=== PATIENT | female | born 1945 | race Two or more races ===

== ENCOUNTER 2018-10-05 21:55 | Inpatient (IN) | payer OTHER, MEDICAID ==
[~2018-10-05] VITALS: Ht 165.1 cm; Wt 53.5 kg
[2018-10-05] MEDS ORDERED: SODIUM CHLORIDE 0.9% 1,000 ML IV ONE (22:30)
[2018-10-05] MEDS ORDERED: metroNIDAZOLE 500MG/100ML 100 ML IV ONE (22:45)
[2018-10-05] MEDS ORDERED: cefTRIAXone 1GM/50ML D5W 50 ML IV ONE (22:45)
[2018-10-05] MEDS ORDERED: IODIXANOL 320MG/ML 100ML BTL IV ONE (23:07)
[2018-10-05] MEDS ORDERED: GASTROGRAFIN 30 ML SOL ONE (23:08)
[2018-10-06 01:25] LABS: Urine Amorphous Crystal FEW /hpf (None Seen); Urine Bacteria FEW /hpf (None Seen); Urine Blood Negative /uL (Negative); Urine Hyaline Cast FEW /lpf (0 - 2); Urine Mucus FEW (None Seen); Urine WBC 7 /hpf (0 - 5)
[2018-10-06 02:02] LABS: Basophils # (auto) 0 uL; Basophils % (auto) 0.2 % (0.0-2.0); Eosinophils # (auto) 0 uL; Eosinophils % (auto) 0.1 % (0.0-7.0); Hematocrit 32.1 % (36.0-46.0); Lymphocytes # (auto) 1.9 uL; Lymphocytes % (auto) 16.7 % (10.0-50.0); Mean Corpuscular Hemoglobin 31.7 pg (28.0-32.0); Mean Corpuscular Hgb Conc. 34.1 g/dL (32.0-36.0); Mean Corpuscular Volume 92.9 fL (80.0-100.0); Neutrophils # (auto) 8.2 uL; Platelet Count (auto) 120 10^3/uL (140-450); Red Blood Cells 3.45 10^6/uL (4.0-5.20); Red Cell Distribution Width 14.5 % (11.8-14.3); White Blood Cell 11.1 10^3/uL (4.4-10.8)
[2018-10-06 02:13] LABS: Albumin 2.8 g/dL (3.4-5.0); BUN/Creatinine Ratio 39.1; Blood Urea Nitrogen 25 mg/dL (7-18); Calcium 8.1 mg/dL (8.5-10.1); Chloride 102 mmol/L (98-107); GFR African American 118 mL/min; GFR Non-African American 97 mL/min; Glucose 146 mg/dL (74-106); Potassium 4.2 mmol/L (3.5-5.1); Sodium 137 mmol/L (136-145)
[2018-10-06 02:22] LABS: Alanine Aminotransferase 25 U/L (13-56); Alkaline Phosphatase 203 U/L (45-117); Anion Gap 13 (5-15); Aspartate Aminotransferase 38 U/L (15-37); Bilirubin, Total 0.8 mg/dL (0.2-1.0); Carbon Dioxide 22 mmol/L (21-32); Total Protein 6.5 g/dL (6.4-8.2)
[2018-10-06] MEDS ORDERED: SODIUM CHLORIDE 0.9% 1,000 ML IV ONE (04:15)
[2018-10-06] MEDS ORDERED: ACETAMINOPHEN 500 MG TAB PO PRN (05:00)
[2018-10-06] MEDS ORDERED: ALBUMIN 25% 50 ML IV ONE (06:15)
--- NOTE | 2018-10-06 08:27 | NUR ---
Telemetry admit from [facility] admitted to Telemetry unit after SBAR received. Patient oriented to primary RN, unit, room, bed, and unit policies regarding patient care and visiting hours. Patient now on continuous telemetry monitoring. Patient placed on bedside oxygen, weighed by bedscale and encouraged to call if they need something. All questions and concerns addressed, patient verbalized understanding.
--- NOTE | 2018-10-06 08:35 | NUR ---
BM Patient had large amount of watery stool. She is incontinent, unaware when she wants to have BM.
[2018-10-06 09:14] VITALS: BP 105/88
[2018-10-06 09:19] VITALS: BP 105/88
[2018-10-06] MEDS: PANTOPRAZOLE 40 MG TAB PO SCH (09:45)
[2018-10-06] MEDS: ONDANSETRON HCL 4 MG/2 ML VIAL IV PRN (09:45)
[2018-10-06] MEDS: MORPHINE SULF INJ 2 MG/ML SYRINGE 1ML IV PRN (09:45)
[2018-10-06] MEDS: DOCUSATE SOD 100 MG CAP PO SCH ×2 (10:00→21:35)
[2018-10-06 13:00] VITALS: BP 101/49
--- NOTE | 2018-10-06 14:10 | NUR ---
Granddaughter at bedside.
[2018-10-06] MEDS ORDERED: LEVO200T7 PO (14:41)
[2018-10-06] MEDS ORDERED: CARV12.544 PO (14:41)
[2018-10-06] MEDS ORDERED: CARV6.2551 PO (14:41)
[2018-10-06] MEDS ORDERED: FURO40TA4 PO (14:41)
[2018-10-06] MEDS ORDERED: POTA-180 PO (14:41)
[2018-10-06] MEDS ORDERED: RIV20T PO (14:41)
[2018-10-06] MEDS ORDERED: QUET25TA46 PO (14:47)
[2018-10-06] MEDS ORDERED: MECL25CH38 PO (14:47)
[2018-10-06 17:00] VITALS: BP 103/54
[2018-10-06] MEDS ORDERED: LEVO1TAB71 PO (17:01)
[2018-10-06] MEDS: CARVEDILOL 3.125 MG TAB PO SCH (17:58)
[2018-10-06] MEDS: QUEtiapine FUMARATE 25 MG TAB PO SCH (17:58)
--- NOTE | 2018-10-06 19:37 | NUR ---
Opening Shift Note Assumed care of patient, awake and alert. No S/S of distress/SOB or pain. Instructed on POC and to call for assist PRN, will continue to monitor for changes Q1hr and PRN. Side rails up x2. Bed locked in lowest position. Call light within reach.
[2018-10-06] MEDS ORDERED: FLEET ENEMA(ADULT) 135 ML PR ONE (20:00)
[2018-10-06 22:05] VITALS: BP 103/52
[2018-10-07 05:17] VITALS: BP 100/61
[2018-10-07] MEDS: LEVOTHYROXINE SODIUM 100 MCG TAB PO SCH (06:07)
[2018-10-07 06:29] LABS: Basophils # (auto) 0 uL; Basophils % (auto) 0.4 % (0.0-2.0); Eosinophils # (auto) 0.1 uL; Eosinophils % (auto) 1.2 % (0.0-7.0); Hematocrit 28.9 % (36.0-46.0); Hemoglobin 9.8 g/dL (12.2-16.2); Lymphocytes # (auto) 1.6 uL; Lymphocytes % (auto) 26.9 % (10.0-50.0); Mean Corpuscular Hemoglobin 32.7 pg (28.0-32.0); Mean Corpuscular Hgb Conc. 33.9 g/dL (32.0-36.0); Mean Corpuscular Volume 96.5 fL (80.0-100.0); Monocytes # (auto) 0.5 uL; Monocytes % (auto) 8.1 % (0.0-12.0); Neutrophils # (auto) 3.8 uL; Neutrophils % (auto) 63.4 % (37.0-80.0); Nucleated Red Blood Cells % 0.1 %; Platelet Count (auto) 112 10^3/uL (140-450); Red Blood Cells 2.99 10^6/uL (4.0-5.20); Red Cell Distribution Width 14.8 % (11.8-14.3); White Blood Cell 5.9 10^3/uL (4.4-10.8)
[2018-10-07 06:32] LABS: BUN/Creatinine Ratio 28.6; Calcium 8.6 mg/dL (8.5-10.1); Potassium 3.8 mmol/L (3.5-5.1)
--- NOTE | 2018-10-07 06:50 | NUR ---
Bowel movements Patient had 3 moderate soft and liquid in consistency bowel movements.
--- NOTE | 2018-10-07 07:07 | NUR ---
Endorsed care to day shift RN.
--- NOTE | 2018-10-07 07:50 | NUR ---
Opening Shift Note Assumed care of patient, awake and alert. No S/S of distress/SOB. Patient complained of pain to abdomen. Instructed on POC and to call for assist PRN, will continue to monitor for changes Q1hr and PRN.
[2018-10-07 08:29] VITALS: BP 110/57
[2018-10-07] MEDS: MORPHINE SULF INJ 2 MG/ML SYRINGE 1ML IV PRN (08:29)
[2018-10-07] MEDS: ONDANSETRON HCL 4 MG/2 ML VIAL IV PRN (08:29)
[2018-10-07] MEDS: MECLIZINE HCL 25 MG TAB PO SCH (08:30)
[2018-10-07] MEDS: DOCUSATE SOD 100 MG CAP PO SCH ×2 (08:30→21:54)
[2018-10-07] MEDS: PANTOPRAZOLE 40 MG TAB PO SCH (08:30)
[2018-10-07] MEDS: CARVEDILOL 12.5 MG TAB PO SCH (08:30)
[2018-10-07] MEDS: POTASSIUM CHL 20 Meq TABLET PO SCH (08:31)
[2018-10-07] MEDS: FUROSEMIDE 40 MG TAB PO SCH (08:31)
--- NOTE | 2018-10-07 09:15 | NUR ---
Oncologist ZACH P/A in to see patient. However the patient was unable to state what her medical history is. Will follow up with granddaughter when she comes in to see patient.
--- NOTE | 2018-10-07 09:45 | NUR ---
Hospitalist rounding Dr. Canales at bedside. Patient in bed uncomplaining at this time. No family member available at this time. Need to get the name of facility where patient was previously treated for cancer. MD requesting medical records.
[2018-10-07] MEDS ORDERED: RIVAROXABAN 20 MG TAB PO SCH (10:00)
[2018-10-07] MEDS ORDERED: IOHEXOL 300 MG/ML 100ML BOTTLE IJ ONE (11:38)
[2018-10-07 12:33] VITALS: BP 104/61
--- NOTE | 2018-10-07 16:30 | NUR ---
IV INSERTION IV access obtained (by charge manager), via clean sterile technique by inserting 20 gauge catheter at left forearm after 2 attempt(s). IV secured properly. No trauma to site. Patient tolerated procedure well. IV to left foot discontinued and pressure dressing applied.
[2018-10-07 16:37] VITALS: BP 126/67
--- NOTE | 2018-10-07 17:45 | NUR ---
CT Scan Patient left unit with technicians to have CT done.
[2018-10-07] MEDS: QUEtiapine FUMARATE 25 MG TAB PO SCH (18:27)
[2018-10-07] MEDS: CARVEDILOL 3.125 MG TAB PO SCH (18:28)
--- NOTE | 2018-10-07 19:05 | NUR ---
OPENING NOTE- NOC SHIFT PATIENT IS IN BED. PATIENT IS ALERT TO SELF, UNAWARE OF TIME, PLACE OR SITUATION. PATIENT DOES STATE THAT SHE LIVES WITH HER GRANDDAUGHTER AND THAT HER GRANDDAUGHTER CARES FOR HER AT HOME. PATIENT ALSO STATES THAT SHE IS NOT AMBULATORY AND THAT SHE HAS A WHEELCHAIR AT HOME BUT IS UNABLE TO STATE WHY SHE CANNOT WALK. BED IS LOCKED IN LOWEST POSITION, BED RAILS UP X2, PATIENT IS SITTING STRAIGHT UP IN BED 90 DEGREES, SHE STATES THIS IS HOW SHE IS COMFORTABLE AND THAT SHE ALSO SLEEPS IN THIS POSITION. BEDSIDE TABLE WITHIN REACH, CALL LIGHT WITHIN REACH. DISCUSSED POC WITH PATIENT AND INSTRUCTED PATIENT TO CALL PRN; PATIENT DOES REPEAT EVERYTHING I SAY. WILL CONTINUE TO MONITOR Q1H AND PRN.
--- NOTE | 2018-10-07 20:05 | NUR ---
MODERATE BOWEL MOVEMENT. PATIENT IS INCONTINENT OF BOWEL. BOWEL WAS FORMED 85%, REST IS LIQUID LOOSE. BOWEL IS BROWN GREEN. CLEANED WITH SOFT SOAP AND WATER, PAT DRY. SKIN AT SACRAL AREA HAS BLANCHABLE REDNESS, APPLIED Z GUARD TO SACRAL AREA FOR PRECAUTION. WILL CONTINUE TO MONITOR Q1H AND PRN.
[2018-10-07 21:46] VITALS: BP 104/65
[2018-10-08 04:44] VITALS: BP 134/54
[2018-10-08 05:38] LABS: Basophils # (auto) 0 uL; Basophils % (auto) 0.4 % (0.0-2.0); Eosinophils # (auto) 0.1 uL; Eosinophils % (auto) 1.2 % (0.0-7.0); Hematocrit 29.5 % (36.0-46.0); Hemoglobin 10.2 g/dL (12.2-16.2); Lymphocytes # (auto) 1.9 uL; Lymphocytes % (auto) 30.2 % (10.0-50.0); Mean Corpuscular Hemoglobin 32.5 pg (28.0-32.0); Mean Corpuscular Hgb Conc. 34.5 g/dL (32.0-36.0); Mean Corpuscular Volume 94.1 fL (80.0-100.0); Monocytes # (auto) 0.5 uL; Monocytes % (auto) 7.6 % (0.0-12.0); Neutrophils # (auto) 3.8 uL; Neutrophils % (auto) 60.6 % (37.0-80.0); Platelet Count (auto) 121 10^3/uL (140-450); Red Blood Cells 3.13 10^6/uL (4.0-5.20); Red Cell Distribution Width 14.6 % (11.8-14.3); White Blood Cell 6.3 10^3/uL (4.4-10.8)
[2018-10-08 06:03] LABS: Potassium 3.6 mmol/L (3.5-5.1)
[2018-10-08 06:07] LABS: Albumin 2.9 g/dL (3.4-5.0); BUN/Creatinine Ratio 17.1; Bilirubin, Total 0.4 mg/dL (0.2-1.0); Total Protein 6.4 g/dL (6.4-8.2)
[2018-10-08] MEDS: LEVOTHYROXINE SODIUM 100 MCG TAB PO SCH (07:00)
--- NOTE | 2018-10-08 07:41 | NUR ---
CLOSING NOTE- NOC SHIFT ENDORSED PATIENT CARE TO DAY SHIFT NURSE SAVANAH ROSE. PATIENT IS COMFORTABLE IN BED, NO S/SX OF DISTRESS, SOB OR PAIN. ENDORSED OBTAIN NOK INFO AND MEDICAL RECORDS FROM PREVIOUS FACILITY.
--- NOTE | 2018-10-08 08:00 | NUR ---
Opening Shift Note Assumed care of patient, awake and alert. No S/S of distress/SOB or pain. Instructed on POC and to call for assist PRN, will continue to monitor for changes Q1hr and PRN. NOTE:Patient voided moderate liquid BM. Patient cleaned by two staff members.
[2018-10-08 09:00] VITALS: BP 134/76
[2018-10-08] MEDS: MECLIZINE HCL 25 MG TAB PO SCH (10:01)
[2018-10-08] MEDS: CARVEDILOL 12.5 MG TAB PO SCH (10:01)
[2018-10-08] MEDS: DOCUSATE SOD 100 MG CAP PO SCH ×2 (10:04→20:53)
[2018-10-08] MEDS: POTASSIUM CHL 20 Meq TABLET PO SCH (10:04)
[2018-10-08] MEDS: FUROSEMIDE 40 MG TAB PO SCH (10:05)
[2018-10-08] MEDS: PANTOPRAZOLE 40 MG TAB PO SCH (10:06)
--- NOTE | 2018-10-08 10:30 | NUR ---
ROUNDING Dr Canales rounding on patient. Patient cleared for discharge today.
--- NOTE | 2018-10-08 11:30 | NUR ---
AGEE Patient asking to have agee to be removed and began pulling on catheter. Educated on process of removal and encouraged patient to allow RN to gather supplies for proper removal. Patient continues to states "right now".
--- NOTE | 2018-10-08 11:50 | NUR ---
Agee catheter dc'd Order to discontinue agee catheter. Agee dc'd by accounts receivable assistant Jocy with clean technique following deflation of balloon. Patient tolerated well with no complaints of pain. Continue care.
[2018-10-08 13:00] VITALS: BP 139/81
--- NOTE | 2018-10-08 13:50 | NUR ---
Incontinent Patient voided urine in bed. Patient cleaned by two staff members and repositioned in bed.
--- NOTE | 2018-10-08 14:00 | NUR ---
DISCHARGE ON HOLD Patient does not recall family contact or PCP. features editor made aware. Dennise Benjamin referred to speak with patient. Patient from out of area. features editor made aware of no family available to pick patient up. Will continue to try and contact family. Patient states she uses oxygen at home.
--- NOTE | 2018-10-08 14:30 | NUR ---
CLEANED AND TURNED Patient voided urine in bed. Encouraged patient to call prior to voiding to use bed thorpe. Patient verbalized understanding. Patient cleaned and turned.
--- NOTE | 2018-10-08 16:50 | NUR ---
Received call from patients family member stating patient called to tell them she has not been cleaned all day. Family updated on discharge orders and care completed through out shift. Encouraged family to bring oxygen tank and transport patient home.
[2018-10-08 17:14] VITALS: BP 148/84
--- NOTE | 2018-10-08 17:55 | NUR ---
FAMILY MEMBER CALLING NURSING STATION ASKING TO SPEAK WITH PATIENT. RN ATTEMPTED TO SPEAK WITH FAMILY, PHONE CALL DISCONNECTED.
[2018-10-08] MEDS ORDERED: RIVAROXABAN 15 MG TAB PO SCH (18:00)
--- NOTE | 2018-10-08 18:18 | NUR ---
GRANDDAUGHTER BEDSIDE Granddaughter Rama at bedside. Educated family on discharge orders and need for oxygen to discharge home safely. Rama states "you guys need to arrange transport... that's not my problem" and explained hospital needs to arrange medical transport for patient. java oracle developer made aware.
--- NOTE | 2018-10-08 19:00 | NUR ---
HOLD DISCHARGE PER JOSE RAMON HOSPITALIST AND D/C NARCOTICS.
[2018-10-08] MEDS: QUEtiapine FUMARATE 25 MG TAB PO SCH (19:47)
[2018-10-08] MEDS: CARVEDILOL 3.125 MG TAB PO SCH (19:47)
[2018-10-08 21:44] VITALS: BP 129/69
--- NOTE | 2018-10-09 05:00 | NUR ---
BOWEL MOVEMENT FORMED STOOL. CLEANED WITH WATER AND SOFT SOAP. APPLIED Z GUARD TO SACRAL AREA FOR PRECAUTIONS. COMPLETE BED LINEN CHANGE, CLEAN GOWN.
[2018-10-09 05:14] VITALS: BP 135/72
[2018-10-09] MEDS: LEVOTHYROXINE SODIUM 100 MCG TAB PO SCH (07:16)
--- NOTE | 2018-10-09 07:30 | NUR ---
OPENING NOTE ASSUMED CARE OF PT. AWAKE AND ALERT. NO SIGNS OF SOB/DISTRESS NOTED. BED SET LOW LOWEST POSITION/LOCKED. BEDSIDE RAILS UP X2. BED ALARM ON. CALL LIGHT WITHIN REACH. INSTRUCTED PT TO CALL FOR ASSISTANCE. DISCUSSED POC. WILL CONTINUE TO MONITOR Q1HR AND PRN.
[2018-10-09] MEDS: CARVEDILOL 12.5 MG TAB PO SCH (08:00)
[2018-10-09 09:00] VITALS: BP 135/75
[2018-10-09] MEDS: FUROSEMIDE 40 MG TAB PO SCH (09:20)
[2018-10-09] MEDS: MECLIZINE HCL 25 MG TAB PO SCH (09:20)
[2018-10-09] MEDS: POTASSIUM CHL 20 Meq TABLET PO SCH (09:20)
[2018-10-09] MEDS: PANTOPRAZOLE 40 MG TAB PO SCH (09:20)
[2018-10-09] MEDS: DOCUSATE SOD 100 MG CAP PO SCH (09:20)
[2018-10-09 13:00] VITALS: BP 131/79
--- NOTE | 2018-10-09 13:19 | NUR ---
SO CONTACTED/APS CASE CASE #[id number] APS
--- NOTE | 2018-10-09 13:24 | NUR ---
CONTACT [phone] UNABLE TO CONTACT APS THIS TIME. NO ANSWER FROM ANSWERING SERVICE FOR APPROX 10MIN
--- NOTE | 2018-10-09 14:00 | NUR ---
CAREGIVER PAMELA (GRANDDAUGHTER) CALLED. INFORMED GRANDDAUGHTER SO/APS HAS BEEN CALLED. GRANDDAUGHTER STATED "ON MY WAY TO PICK HER UP."
--- NOTE | 2018-10-09 14:45 | NUR ---
Discharge instructions given as ordered to granddaughter Rama and patient. Encourage to follow up with PMD as instructed. All questions and concerns addressed. Patient verbalized understanding. IV removed with catheter intact, pressure dressing applied. Telemetry unit returned to ICU.
--- NOTE | 2018-10-09 14:56 | NUR ---
Patient taken to vehicle via wheelchair with all personal belongings, accompanied by staff and family member. No distress noted at time of departure.
== END 2018-10-09 14:51 | disposition home or self-care (01) | DRG 388 ==
LOC: EDBD 21:55 → ER 22:03 → TELE 22:04 → TELE-WESTW 10-06 08:27
PROVIDERS: ADMIT Nurse Practitioner Family; ATTEND Family Medicine
DX: K56.41 Fecal impaction (principal); E43 Unspecified severe protein-calorie malnutrition; E27.9 Disorder of adrenal gland, unspecified; R19.7 Diarrhea, unspecified; K80.20 Calculus of gallbladder without cholecystitis without obstruction; Z86.73 Personal history of transient ischemic attack (TIA), and cerebral infarction without residual deficits; D64.9 Anemia, unspecified; E86.0 Dehydration; I10 Essential (primary) hypertension; E03.9 Hypothyroidism, unspecified; D63.8 Anemia in other chronic diseases classified elsewhere
CPT/HCPCS: 36415; 51702; 74018; 74176; 74178; 80048; 80053; 81001; 82270; 83615; 84484; 85025; 85048; 87177; 87493; 93005; 96361; 96365; 96367; G0378; J0696; J2405; J3490; Q9967